=== PATIENT | male | born 1950 | race Hispanic/Latino ===

== ENCOUNTER 2016-11-01 11:10 | Inpatient (IN) | payer MEDICARE, BC ==
--- NOTE | 2016-11-01 11:45 | ED PDOC ---
Arrival/HPI - General Chief Complaint: Fever Time Seen by Provider: 11/01/16 11:16 Historian: Patient - History of Present Illness Narrative History of Present Illness (Text): 11/01/16 11:47 A 66 year old male was sent from PMD office to the emergency department complaining of fever and chills for the past two days. Patient also reports diaphoresis, chronic urinary frequency, loss of appetite, headache, currently resolved, and leg pain. Reports taking Advil with minimal relief. Denies any nausea, diarrhea, abdominal pain, rashes, changes in bowel movements or any other complaints at this time. Denies any recent travels. PMD: Dr. Hogan Time/Duration: < week Symptom Onset: Sudden Symptom Course: Unchanged Activities at Onset: Rest Context: Home Past Medical History - Provider Review Nursing Documentation Reviewed: Yes - Infectious Disease Hx of Infectious Diseases: None - Genitourinary/Gynecological Hx Prostate Problems: Yes - Psychiatric Hx Depression: Yes Hx Substance Use: No Family/Social History - Physician Review Nursing Documentation Reviewed: Yes Family/Social History: No Known Family HX Smoking Status: Unknown If Ever Smoked Hx Alcohol Use: Yes Frequency of alcohol use: Socially Hx Substance Use: No Allergies/Home Meds Allergies/Adverse Reactions: Allergies No Known Allergies Allergy (Verified 11/01/16 11:37) Home Medications: Home Meds Medication Instructions Recorded Confirmed Simvastatin [Zocor] 40 mg PO DAILY 11/01/16 11/01/16 Review of Systems - Physician Review All systems were reviewed & negative as marked: Yes - Review of Systems Constitutional: Fevers, Other (chills) Gastrointestinal: Appetite Changes. absent: Abdominal Pain, Diarrhea, Nausea Genitourinary Male: Frequency (chronic) Musculoskeletal: Other (leg pain) Skin: absent: Rash Neurological: Headache Endocrine: Diaphoresis Physical Exam - Physical Exam Narrative Physical Exam (Text): 11/01/16 11:44 Head: Atraumatic. Normocephalic. Eyes: PERRL. EOMI. Conjunctivae are not pale. ENT: Mucous membranes are moist and intact. Oropharynx is clear and symmetric. Neck: Supple. Full ROM. No JVD. No lymphadenopathy. Cardiovascular: Regular rate. Regular rhythm. No murmurs, rubs, or gallops. Distal pulses are 2+ and symmetric. Pulmonary/Chest: No evidence of respiratory distress. Clear to auscultation bilaterally. No wheezing, rales or rhonchi. Abdominal: Soft and non-distended. There is no tenderness. No rebound, guarding, or rigidity. No organomegaly. Good bowel sounds. Back: No CVA tenderness. Extremities: No edema. No cyanosis. No clubbing. Full range of motion in all extremities. No calf tenderness. Skin: Skin is warm and dry. No petechiae. No purpura. Neurological: Alert, awake, and oriented to person, place, time, and situation. Normal speech. Psychiatric: Good eye contact. Normal interaction, affect, and behavior. Vital Signs Reviewed: Yes Vital Signs Temp Pulse Resp BP Pulse Ox 11/01/16 11:32 102.8 F H 110 H 18 124/86 99 Temperature: Febrile Blood Pressure: Normal Pulse: Tachycardic Respiratory Rate: Normal Appearance: Positive for: Well-Appearing, Non-Toxic, Comfortable Pain Distress: None Mental Status: Positive for: Alert and Oriented X 3 Medical Decision Making ED Course and Treatment: 11/01/16 11:42 Impression: A 66 year old male with fever, diaphoresis and urinary frequency. Differential Diagnosis included but are not limited to: sepsis vs. UTI vs. viral illness vs. pneumonia Plan: -- EKG -- chest xray -- labs -- Urinalysis -- Tylenol -- Reassess and disposition Progress Notes: 11/01/16 12:27 chest xray: Creator : Demetrio Walters MD IMPRESSION: No active disease. 11/01/16 13:03 EKG: Ordered, reviewed, and independently interpreted the EKG. Rate : 87 BPM Rhythm : NSR Interpretation : Normal intervals, no acute ST elevations - Lab Interpretations Lab Results: 11/01/16 12:00 11/01/16 12:00 Lab Results 11/01/16 12:00: Sodium 134, Chloride 97 L, Potassium 4.4, Carbon Dioxide 28, Anion Gap 13, BUN 22 H, Creatinine 1.3, Est GFR ( Amer) > 60, Est GFR ( Non-Af Amer) 55, Random Glucose 103, Calcium 9.2, Phosphorus 2.7, Magnesium 1.9 , Total Bilirubin 1.1, AST 61 H, ALT 65 H, Alkaline Phosphatase 112, Lactate Dehydrogenase 536, Total Creatine Kinase 174, Troponin I < 0.01, Total Protein 7.1, Albumin 4.1, Globulin 2.9, Albumin/Globulin Ratio 1.4 11/01/16 12:00: pO2 36, VBG pH 7.41, VBG pCO2 44.0, VBG HCO3 27.9, VBG Total CO2 29.3 H, VBG O2 Sat (Calc) 81.9 H, VBG Base Excess 2.7 H, VBG Potassium 4.6, Sodium 135.0, Chloride 98.0, Glucose 111 H, Lactate 1.3, FiO2 21.0, Venous Blood Potassium 4.6 11/01/16 12:00: PT 11.4, INR 1.06, APTT 33.1 H 11/01/16 12:00: WBC 8.7, RBC 4.48, Hgb 14.9, Hct 42.1, MCV 94.0, MCH 33.3, MCHC 35.4, RDW 12.1, Plt Count 190, MPV 9.5, Gran % 74.9 H, Lymph % (Auto) 13.2 L, [place] % (Auto) 10.4 H, Eos % (Auto) 1.4 L, Baso % (Auto) 0.1, Gran # 6.53 H, Lymph # 1.2, [place] # 0.9 H, Eos # 0.1, Baso # 0.01 I have reviewed the lab results: Yes - RAD Interpretation Radiology Orders: 11/01/16 11:39 CHEST PORTABLE [RAD] Stat - EKG Interpretation Interpreted by ED Physician: Yes Type: 12 lead EKG - Medication Orders Current Medication Orders: Discontinued Medications Acetaminophen (Tylenol 325mg Tab) 975 mg PO STAT STA Stop: 11/01/16 11:42 Last Admin: 11/01/16 12:25 Dose: 975 mg Ceftriaxone Sodium (Rocephin 1 Gram Ivpb) 1 gm in 100 mls @ 200 mls/hr IVPB STAT STA PRN Reason: Protocol Stop: 11/01/16 12:19 Last Admin: 11/01/16 12:25 Dose: 200 mls/hr Sodium Chloride (Sodium Chloride 0.9%) 1,000 mls @ 1,000 mls/hr IV .Q1H STA Stop: 11/01/16 12:51 Last Admin: 11/01/16 12:25 Dose: 1,000 mls/hr - Scribe Statement The provider has reviewed the documentation as recorded by the Scribe Eleazar Cote Provider Scribe Attestation: All medical record entries made by the Scribe were at my direction and personally dictated by me. I have reviewed the chart and agree that the record accurately reflects my personal performance of the history, physical exam, medical decision making, and the department course for this patient. I have also personally directed, reviewed, and agree with the discharge instructions and disposition. Disposition/Present on Arrival - Present on Arrival History of DVT/PE: No History of Uncontrolled Diabetes: No Urinary Catheter: No History of Decub. Ulcer: No History Surgical Site Infection Following: None - Disposition Referrals: PCP,NO [Primary Care Provider] - Follow up with primary Forms: [employer] (Georgian)
[2016-11-01] MEDS ORDERED: cefTRIAXone 1 gm 1 GM/100 ML BAG IVPB STA (11:50)
[2016-11-01] MEDS ORDERED: Sodium Chloride 0.9% 1,000 ML IV STA (11:52)
--- NOTE | 2016-11-01 12:25 | RAD ---
HISTORY: fever COMPARISON: No prior. FINDINGS: LUNGS: No active pulmonary disease. PLEURA: No significant pleural effusion identified, no pneumothorax apparent. CARDIOVASCULAR: Normal. OSSEOUS STRUCTURES: No significant abnormalities. VISUALIZED UPPER ABDOMEN: Normal. OTHER FINDINGS: None. IMPRESSION: No active disease.
[2016-11-01 12:28] LABS: BASO # 0.01 K/mm3 (0.0-2.0); BASO % 0.1 % (0.0-3.0); EOS # 0.1 (0.0-0.7); EOS % 1.4 % (1.5-5.0); GRAN # 6.53 (1.4-6.5); GRAN % 74.9 % (50.0-68.0); HEMOGLOBIN 14.9 g/dL (14.0-18.0); LYMPH # 1.2 (1.2-3.4); LYMPH % 13.2 % (22.0-35.0); MEAN CORPUSCULAR HEMOGLOBIN 33.3 pg (25.0-35.0); MEAN CORPUSCULAR HGB CONC 35.4 g/dl (31.0-37.0); MEAN PLATELET VOLUME 9.5 fl (7.0-11.0); MONO # 0.9 (0.1-0.6); MONO % 10.4 % (1.0-6.0); PLATELET COUNT 190 10^3/uL (120.0-450.0); RBC 4.48 10^6/uL (3.5-6.1); RED CELL DISTRIBUTION WIDTH 12.1 % (11.5-14.5); WHITE BLOOD COUNT 8.7 10^3/ul (4.5-11.0)
[2016-11-01 12:38] LABS: ALB/GLOB RATIO 1.4 (1.1-1.8); ALBUMIN 4.1 g/dL (3.0-4.8); ALT/SGPT 65 U/L (7-56); AST/SGOT 61 U/L (15-59); BLOOD UREA NITROGEN 22 mg/dL (7-21); CALCIUM 9.2 mg/dL (8.4-10.5); GFR AFRICAN-AMERICAN > 60; GFR NON-AFRICAN AMERICAN 55; MAGNESIUM 1.9 mg/dL (1.7-2.2)
[2016-11-01 12:39] LABS: INR 1.06 (0.93-1.08); PARTIAL THROMBOPLASTIN TIME 33.1 Seconds (23.7-30.8); PROTHROMBIN TIME 11.4 Seconds (9.9-11.8)
[2016-11-01 12:44] LABS: VENOUS BLOOD GAS BASE EXCESS 2.7 mmol/L (0.0-2.0); VENOUS BLOOD GAS PO2 36 mm/Hg (30-55); VENOUS BLOOD PH 7.41 (7.32-7.43)
[2016-11-01 12:49] LABS: TROPONIN I < 0.01 ng/mL
[2016-11-01 13:18] LABS: PH,URINE 5.5 (4.7-8.0); URINE APPEARANCE CLEAR (CLEAR); URINE BILIRUBIN NEGATIVE (NEGATIVE); URINE BLOOD SMALL (NEGATIVE); URINE COLOR YELLOW (YELLOW); URINE GLUCOSE (UA) NEGATIVE (NEGATIVE); URINE LEUKOCYTE ESTERASE NEGATIVE Leu/uL (NEGATIVE); URINE NITRATE NEGATIVE (NEGATIVE); URINE PROTEIN 30 mg/dL (<30 mg/dL)
[2016-11-01 13:26] LABS: URINE BACTERIA FEW (NEG); URINE RBC 0 - 2 /hpf (0-2)
[2016-11-01 15:36] VITALS: BMI 29.2
[2016-11-01] MEDS ORDERED: Pneumococcal 23-Valent Vaccine IM ONE (15:36)
--- NOTE | 2016-11-01 23:30 | CARD ---
APPROVED REPORT EKG Measurement Heart [id number] <Conclusion> Normal sinus rhythm Normal ECG
[2016-11-02] MEDS: cefTRIAXone 1 gm 1 GM/100 ML BAG IVPB SCH (09:28)
--- NOTE | 2016-11-02 15:09 | HP ---
HISTORY OF PRESENT ILLNESS: This is a 66-year-old male who is coming into the hospital with complaints of fever. He said the fever started 2 days prior to coming into the ER. He says he was drenching in sweat. He had no urinary frequency. No dysuria. No abdominal pain. No cough. No congestion. No weakness in the arms and the legs. No back pain. He has no sick contacts. He has no pets. He has not been outside of the area recently traveling. The patient says he is not sexually active. REVIEW OF SYSTEMS: All other review of symptoms are within normal limits, except what was mentioned. ALLERGIES: NO KNOWN DRUG ALLERGIES. HOME MEDICATIONS: Simvastatin. PAST MEDICAL HISTORY: Depression and dyslipidemia. FAMILY HISTORY: Noncontributory. SOCIAL HISTORY: He does not smoke. Denies alcohol or drug abuse. PHYSICAL EXAMINATION: VITAL SIGNS: Temperature, T-max of 101, repeat is 99.4, blood pressure 104/58, respirations 20, and O2 saturation is 97%. Height is 5 feet 11 inches, weight is 210 pounds, and BMI 29.3. GENERAL: The patient lying in bed, uncomfortable, and in no acute distress. HEENT: Atraumatic and normocephalic. Anicteric sclerae. Moist mucosa. [place] conjunctivae. No oral lesions. NECK: No JVD, anterior and posterior adenopathy, thyromegaly, or bruits. CARDIOVASCULAR: S1 and S2 regular. No murmur, rubs, or gallop. LUNGS: Clear to auscultation bilaterally. No wheezes, rales, or rhonchi. ABDOMEN: Bowel sounds are positive. Soft, nontender and nondistended. No hepatosplenomegaly. No rebound and no guarding. EXTREMITIES: No cyanosis, clubbing, or edema. NEUROLOGIC: No facial asymmetry. Tongue is midline. No vulva deviation. Power is 5/5 upper extremity and lower extremity. Sensation intact in upper extremity and lower extremity. PSYCHIATRIC: She is awake, alert and oriented x3. No anxiety or depression. She has normal affect. GENITOURINARY: No CVA tenderness. VASCULAR: 2+ pulses in the carotid pulses and pedal pulses. SKIN: No erythema or nodules SPINE: Shows normal curvature. EXTREMITIES: No cyanosis and clubbing, no edema. LABORATORY DATA: White count of 8.7, hemoglobin 14.9, and platelet count is 190, granulocytes is 75%, INR is 1.06. Chemistry shows a sodium of 134, potassium 4.4, AST/ALT 61 and 65, troponin is 0.01. Urine shows blood small, nitrites are negative, bilirubin negative. Serology shows influenza is negative. Chest x-ray done shows no active disease. His EKG shows sinus rhythm with a QTc of 411. Heart rate of 87. ASSESSMENT: 1. Fever. 2. Dyslipidemia. 3. Depression. PLAN: The patient is admitted to the hospital. He is on Celexa for his depression. He is going to continue his Lipitor for dyslipidemia. He is on Rocephin for antibiotics. The patient is on Tylenol. He is on heart healthy diet. The patient has been consulted with Dr. Welch for her fever. I will get Hematology evaluation as I am not sure this may be infectious. I will also order serology. The patient's differential diagnoses is broad, they can include infection, inflammation, malignancy, and autoimmune process. We will continue to evaluate further. The patient did have blood cultures and urine cultures that were ordered. Josef Nuno MD
--- NOTE | 2016-11-02 18:29 | CP.PCM.CON ---
History of Present Illness - History of Present Illness History of Present Illness: 66 year old male with PMH of came in to [facility] complaining of fever and chills for the past 2 days. States that he had an episode of drenching sweats. He denies headache or dizziness, no chest pain, no SOB, no cough or colds, no SOB, no abdominal pain, no diarrhea, no dysuria, no skin rash , no joint pains. He states he is not sexually active, denies animal contacts, insect bites. He denies recent travel outside of [place] in the past 3 months. Infectious Diseases consult is requested to further evaluate and manage. Review of Systems - Review of Systems All systems: reviewed and no additional remarkable complaints except (as per HPI ) Past Patient History - Infectious Disease Hx of Infectious Diseases: None - Past Social History Smoking Status: Never Smoked - CARDIAC Hx Hypercholesterolemia: Yes - RENAL Hx Kidney Stones: Yes (cystoscope x 2 for kidney stones) - MUSCULOSKELETAL/RHEUMATOLOGICAL Hx Falls: No - GENITOURINARY/GYNECOLOGICAL Hx Prostate Problems: (pt denies prostate problems) - PSYCHIATRIC Hx Substance Use: No - SURGICAL HISTORY Hx Surgeries: Yes (tonsillectomy) Meds Allergies/Adverse Reactions: Allergies Allergy/AdvReac Type Severity Reaction Status Date / Time No Known Allergies Allergy Verified 11/01/16 11:37 - Medications Medications: Current Medications Acetaminophen (Tylenol 325mg Tab) 650 mg PO Q4H PRN PRN Reason: Fever >100.4 F Last Admin: 11/01/16 17:34 Dose: 650 mg Atorvastatin Calcium (Lipitor) 20 mg PO DIN CONNIE Last Admin: 11/01/16 17:33 Dose: 20 mg Citalopram Hydrobromide (Celexa) 20 mg PO DAILY [facility] Ceftriaxone Sodium (Rocephin 1 Gram Ivpb) 1 gm in 100 mls @ 100 mls/hr IVPB DAILY CONNIE PRN Reason: Protocol Physical Exam - Constitutional Appears: Non-toxic, No Acute Distress - Head Exam Head Exam: NORMAL INSPECTION - ENT Exam ENT Exam: Mucous Membranes Moist - Neck Exam Neck exam: Negative for: Lymphadenopathy, Meningismus - Respiratory Exam Respiratory Exam: Decreased Breath Sounds - Cardiovascular Exam Cardiovascular Exam: +S1, +S2 - GI/Abdominal Exam GI & Abdominal Exam: Soft. absent: Tenderness Results - Vital Signs Recent Vital Signs: Last Vital Signs Temp 102.8 F H 08/11/17 17:34 Pulse 88 11/01/16 16:00 Resp 18 11/01/16 16:00 BP 115/68 11/01/16 16:00 Pulse Ox 100 11/01/16 16:00 - Labs Result Diagrams: 11/01/16 12:00 11/01/16 12:00 Labs: Laboratory Results - last 24 hr 11/01/16 15:15 Influenza Typ A,B (EIA) Negative for flu a/b Assessment & Plan - Assessment and Plan (Free Text) Plan: Assessment Systemic Inflammatory Response Syndrome with fever, R/O infection, so far no source identified; patient has mild transaminitis will R/O hepatitis depression dyslipidemia Plan Started patient on Rocephin pending blood and urine cx; CXR is negative; will get Hepatitis profile; may test for CMV and EBV will monitor clinically
[2016-11-02 20:03] LABS: BARBITURATES, UR NEGATIVE (NEGATIVE); BENZODIAZEPINES, UR NEGATIVE (NEGATIVE); OPIATES, UR NEGATIVE (NEGATIVE); PHENCYCLIDINE, UR NEGATIVE (NEGATIVE)
[2016-11-03 08:25] LABS: BASO # 0.01 K/mm3 (0.0-2.0); BASO % 0.2 % (0.0-3.0); EOS # 0.3 (0.0-0.7); GRAN # 3.31 (1.4-6.5); GRAN % 57.9 % (50.0-68.0); HEMOGLOBIN 14.6 g/dL (14.0-18.0); LYMPH # 1.3 (1.2-3.4); LYMPH % 22.9 % (22.0-35.0); MEAN CELL VOLUME 93.8 fl (80.0-105.0); MEAN CORPUSCULAR HEMOGLOBIN 32.2 pg (25.0-35.0); MEAN CORPUSCULAR HGB CONC 34.4 g/dl (31.0-37.0); MEAN PLATELET VOLUME 9.7 fl (7.0-11.0); MONO # 0.7 (0.1-0.6); PLATELET COUNT 220 10^3/uL (120.0-450.0); RBC 4.53 10^6/uL (3.5-6.1); RED CELL DISTRIBUTION WIDTH 12.1 % (11.5-14.5); WHITE BLOOD COUNT 5.7 10^3/ul (4.5-11.0)
[2016-11-03 08:35] LABS: ALB/GLOB RATIO 1.2 (1.1-1.8); ALBUMIN 3.8 g/dL (3.0-4.8); ALT/SGPT 59 U/L (7-56); AMYLASE 77 U/L (35-125); AST/SGOT 49 U/L (15-59); BLOOD UREA NITROGEN 17 mg/dL (7-21); CALCIUM 9.2 mg/dL (8.4-10.5); GFR AFRICAN-AMERICAN > 60; GFR NON-AFRICAN AMERICAN > 60
[2016-11-03] MEDS: cefTRIAXone 1 gm 1 GM/100 ML BAG IVPB SCH (10:29)
[2016-11-03 11:33] LABS: COMPLEMENT C4 41.7 mg/dL (14.0-44.0)
--- NOTE | 2016-11-03 18:27 | CP.PCM.PN ---
Subjective - Date & Time of Evaluation Date of Evaluation: 11/03/16 Time of Evaluation: 12:00 - Subjective Subjective: Comfortably resting in bed, has not had fevers today. Objective - Vital Signs/Intake and Output Vital Signs (last 24 hours): Temp Pulse Resp BP Pulse Ox 98.3 F 70 20 129/62 98 11/03/16 07:00 11/03/16 07:00 11/03/16 07:00 11/03/16 07:00 11/03/16 07:00 Intake and Output: 11/03/16 11/03/16 06:59 18:59 Intake Total 1000 Balance 1000 - Medications Medications: Current Medications Acetaminophen (Tylenol 325mg Tab) 650 mg PO Q4H PRN PRN Reason: Fever >100.4 F Last Admin: 11/02/16 23:14 Dose: 650 mg Atorvastatin Calcium (Lipitor) 20 mg PO DIN [facility] Last Admin: 11/02/16 17:33 Dose: 20 mg Citalopram Hydrobromide (Celexa) 20 mg PO DAILY [facility] Last Admin: 11/02/16 09:28 Dose: 20 mg Ceftriaxone Sodium (Rocephin 1 Gram Ivpb) 1 gm in 100 mls @ 100 mls/hr IVPB DAILY CONNIE PRN Reason: Protocol Last Admin: 11/02/16 09:28 Dose: 100 mls/hr - Labs Labs: 11/03/16 07:25 11/03/16 07:30 PT 11.4 Seconds (9.9-11.8) 11/01/16 12:00 INR 1.06 (0.93-1.08) 11/01/16 12:00 APTT 33.1 Seconds (23.7-30.8) H 11/01/16 12:00 - Constitutional Appears: Non-toxic, No Acute Distress - Head Exam Head Exam: NORMAL INSPECTION - ENT Exam ENT Exam: Mucous Membranes Moist - Neck Exam Neck Exam: absent: Lymphadenopathy, Meningismus - Respiratory Exam Respiratory Exam: Decreased Breath Sounds - Cardiovascular Exam Cardiovascular Exam: +S1, +S2 - GI/Abdominal Exam GI & Abdominal Exam: Soft. absent: Tenderness Assessment and Plan - Assessment and Plan (Free Text) Plan: Assessment Systemic Inflammatory Response Syndrome with fever, R/O infection, so far no source identified; patient has mild transaminitis will R/O hepatitis depression dyslipidemia Plan Started patient on Rocephin pending blood and urine cx; CXR is negative; will get Hepatitis profile; may test for CMV and EBV will continue to monitor clinically
--- NOTE | 2016-11-04 01:47 | PN ---
DATE: SUBJECTIVE: The patient has no complaints of any chest pain. No shortness of breath. He is eager to leave the hospital, but understands that he needs to stay. PHYSICAL EXAMINATION VITAL SIGNS: Temperature is 98.5, pulse is 95, blood pressure 107/71, respirations 18. GENERAL: The patient is lying in bed, flat, comfortable. HEENT: No oral lesion. Anicteric sclerae. Moist mucosa. NECK: No JVD, adenopathy, or thyromegaly. CARDIOVASCULAR: S1 and S2, regular. No murmurs, rubs, or gallops. LUNGS: Clear to auscultation bilaterally. No wheeze, rales, or rhonchi. ABDOMEN: Bowel sounds are positive, soft, nontender and nondistended. EXTREMITIES: no cyanosis, clubbing or edema. LABORATORY DATA: Labs have been reviewed. His blood cultures and urine cultures have been negative and the serology. The patient's HIV is negative, influenza is negative. Hep B and C is pending. The patient's T3 and T4 was reviewed. Urine tox is negative. The patient has urine eosinophils, which are negative. ASSESSMENT: 1. Fever, resolved. 2. Dyslipidemia. 3. Depression. PLAN: The patient is currently comfortable. Chest x-ray has been negative. The patient has been responding to his Rocephin and he has not had any more fevers. He also has a serology that is pending for autoimmune illnesses. He is going to continue with Lipitor for dyslipidemia. He is on Celexa for his depression. He is on Rocephin for antibiotics. He is now on a heart healthy diet. Josef Nuno MD
[2016-11-04 08:30] LABS: HEPATITIS B SURFACE AG NEGATIVE (NEGATIVE)
[2016-11-04 08:33] VITALS: BP 120/65; PULSE 62; RESP 20; TEMP 97.8; O2SAT 97
[2016-11-04 08:35] LABS: HEPATITIS A IGM NEGATIVE (NEGATIVE)
[2016-11-04 08:46] LABS: HEPATITIS C ANTIBODY NEGATIVE (NEGATIVE)
[2016-11-04 09:44] LABS: HEPATITIS B CORE AB NEGATIVE (NEGATIVE)
[2016-11-04] MEDS: cefTRIAXone 1 gm 1 GM/100 ML BAG IVPB SCH (09:52)
--- NOTE | 2016-11-05 08:17 | DS ---
DATE: 11/04/2016 SUBJECTIVE: The patient has no complaints of any chest pain. No shortness of breath. He was initially admitted to the hospital, because of fever, he had urine cultures, blood cultures, chest x-ray done that did not show any significant abnormalities. He has been afebrile. He was started on IV antibiotics and was seen by Dr. Cade. The patient also had serology done, his hepatitis A and C has been negative. Hepatitis B surface antigen antibody are negative. Influenza was negative. The patient had a tox screen it was negative. Eosinophils were negative. He is going to be discharged home, I have spoken to Dr. Cade, he has agreed to the discharge with no antibiotics. PHYSICAL EXAMINATION: VITAL SIGNS: Temperature is 97.8, pulse of 62, blood pressure 120/65, respirations 20 and O2 saturation 97%. GENERAL: The patient is lying in bed, flat, comfortable. HEENT: No oral lesion. Anicteric sclerae. Moist mucosa. NECK: No JVD, adenopathy or thyromegaly. CARDIOVASCULAR: S1 and S2, regular. No murmurs, rubs or gallops. LUNGS: Clear to auscultation bilaterally. No wheeze, rales or rhonchi. ABDOMEN: Bowel sounds are positive, soft, nontender and nondistended. EXTREMITIES: No cyanosis, clubbing or edema. ASSESSMENT: 1. Fever resolved. 2. Dyslipidemia. 3. Depression. PLAN: The patient is currently comfortable, he is going to be on Celexa for his depression. He is on Lipitor for his dyslipidemia. He is going to be discharged home today. Followup as an outpatient with Dr. Hogan. Condition stable. Activities increased as tolerated. Josef Nuno MD
== END 2016-11-04 11:47 | disposition home or self-care (01) | DRG 864 ==
LOC: ED 11:10 → ERH 13:40 → 5RSO 15:18
PROVIDERS: ADMIT Internal Medicine Nephrology; ATTEND Internal Medicine Nephrology
DX: R50.9 Fever, unspecified (principal); F32.9 Major depressive disorder, single episode, unspecified; E78.5 Hyperlipidemia, unspecified